=== PATIENT | male | born 1995 | race Caucasian/White ===

== ENCOUNTER 2020-10-14 10:06 | Emergency (ER) | payer OTHER ==
[~2020-10-14] VITALS: Ht 190.5 cm; Wt 74.8 kg
--- NOTE | 2020-10-14 10:17 | NUR ---
CARLOS WELCH [phone] MOM
--- NOTE | 2020-10-14 10:26 | NUR ---
BIBRA 102 FROM HOME C/O SI "TOOK 20 [place] PILLS". PT SLEEPY, EASILY AWAKEN BY VERBAL STIMULI. DENIES CP, SOB, N/V AT THIS TIME. PT SEEN & EVAL'D BY DR. ASENCIO. PT ON RESTRAINTS PER ERMD ORDER. PLACED ON MOLD DUMPER, SB. WILL CONT TO MONITOR.
[2020-10-14] MEDS ORDERED: LIDOCAINE HCL/MPF 1% 30 ML VIAL IJ ONE (10:27)
[2020-10-14] MEDS ORDERED: LIDOCAINE HCL/PF 1% 30 ML VIAL TP ONE (10:30)
[2020-10-14 10:32] LABS: BASOPHILS # (AUTO) 0.1 /CMM (0.0-0.2); BASOPHILS % (AUTO) 1.2 % (0.0-2.0); EOSINOPHILS % (AUTO) 3.6 % (0.0-6.0); HEMATOCRIT 49 % (39-51); HEMOGLOBIN 16.7 g/dL (13.5-17.5); LYMPHOCYTES # (AUTO) 1.5 /CMM (0.8-4.8); LYMPHOCYTES % (AUTO) 22.6 % (20.0-44.0); MEAN CORPUSCULAR HGB CONC 34 g/dl (31.0-36.0); MEAN CORPUSCULAR VOLUME 95 fL (80-96); MONOCYTES # (AUTO) 0.6 /CMM (0.1-1.30); MONOCYTES % (AUTO) 8.8 % (2.0-12.0); NEUTROPHILS # (AUTO) 4.2 /CMM (1.8-8.9); NEUTROPHILS % (AUTO) 63.8 % (43.0-81.0); PLATELET COUNT (AUTO) 276 /CMM (150-450); RED BLOOD CELL COUNT(AUTO) 5.22 MIL/uL (4.5-6.0); WHITE BLOOD COUNT (AUTO) 6.6 K/uL (4.3-11.0)
[2020-10-14 10:48] LABS: CALCIUM, SERUM 9.4 mg/dL (8.5-10.1); CARBON DIOXIDE 29 mmol/L (21-32); CHLORIDE 103 mmol/L (98-107); GLUCOSE 81 mg/dL (74-106); POTASSIUM 4.3 mmol/L (3.5-5.1); SODIUM SERUM 141 mmol/L (136-145); UREA NITROGEN, BLOOD 16 mg/dL (7-18)
[2020-10-14 10:52] LABS: ACETAMINOPHEN < 0 ug/ml (10-30); ALANINE AMINOTRANSFERASE 46 U/L (12-78); ALBUMIN 4.2 g/dL (3.4-5.0); ALCOHOL, BLOOD < 3 mg/dL (0-0); ALKALINE PHOSPHATASE 50 U/L (46-116); ASPARTATE AMINOTRANSFERASE 27 U/L (15-37); BILIRUBIN,DIRECT 0.3 mg/dL (0.0-0.2); TOTAL PROTEIN, SERUM 7.5 g/dL (6.4-8.2)
--- NOTE | 2020-10-14 12:23 | NUR ---
DR. ASENCIO AT FOR LAC REPAIR
--- NOTE | 2020-10-14 12:26 | NUR ---
[facility] [phone]
--- NOTE | 2020-10-14 13:00 | NUR ---
Patient is resting comfortably in bed with eyes closed. Easily aroused. VSS
--- NOTE | 2020-10-14 15:00 | NUR ---
[facility]ISON CONTR[facility] CONTINUE TO OBSERVATION UNTIL PT IS BACK FROM NORMAL AAO.
--- NOTE | 2020-10-14 15:05 | NUR ---
PT AAOX4, VSS. RR EVEN & UNLABORED. DENIES CP, SOB, DIZZINESS, N/V, ABD PAIN AT THIS TIME. SITTER AT BS & WILL CONT TO MONITOR.
[2020-10-14 16:16] LABS: BILIRUBIN,URINE Negative (NEGATIVE); COLOR,URINE YELLOW (YELLOW); LEUKOCYTE ESTERASE ,URINE Negative (NEGATIVE); NITRITE, URINE Negative (NEGATIVE); PROTEIN,URINE Negative (NEGATIVE); UGLUCOSE Negative (NEGATIVE); UROBILINOGEN,URINE 0.2 EU/dL (0.2)
[2020-10-14 16:28] LABS: BACTERIA,URINE Few /HPF (None Seen); RBC,URINE 0-2 /HPF (0-2); SQUAMOUS EPITHELIAL CELL,UR Few /HPF (None Seen); WBC,URINE 0-2 /HPF (0-3)
--- NOTE | 2020-10-14 16:40 | NUR ---
YUNG RN AT BEDSIDE FOR PSYCH EVAL.
--- NOTE | 2020-10-14 16:46 | NUR ---
LAB CALLED PT COVID NEGATIVE (-)
--- NOTE | 2020-10-14 18:43 | NUR ---
[facility] CALLED BACK. NO AVAILABLE BED AT THIS TIME.
--- NOTE | 2020-10-14 23:45 | NUR ---
CALL FROM POISON CONTROL, STATED TO DO AN EKG AND IF THE QRS IS 100 OR GREATER CALL THEM BACK OR IF [facility] HAS NOT IMPROVED
--- NOTE | 2020-10-15 02:13 | NUR ---
RESTRAINTS TAKEN OFF, PT RESTING COMFORTABLY.
--- NOTE | 2020-10-15 05:42 | NUR ---
PT RESTING COMFORTABLY. VSS.
--- NOTE | 2020-10-15 07:24 | NUR ---
CALLED [facility] [phone] ABDIRASHID GOT COVID RESULT WAITING FOR AVAILABLE BEDS
--- NOTE | 2020-10-15 07:37 | NUR ---
received a call from Marii from [facility] and will review patient records for admission.
--- NOTE | 2020-10-15 07:50 | NUR ---
call from Marii, waiting on discharge to get a male bed
--- NOTE | 2020-10-15 08:43 | NUR ---
Patient Tranfers to outside Facility Physician:Dr. Bates Location:[facility] room 403-A number for report [phone]
--- NOTE | 2020-10-15 09:01 | NUR ---
[facility] CALLED ETA 1100
--- NOTE | 2020-10-15 09:14 | NUR ---
PT RESTING IN BED. AAOX3 VERBALLY RESPONSIVE AND COOPERATIVE TO STAFF. SITTER AT BEDSIDE. WILL CONTINUE TO MONITOR.
--- NOTE | 2020-10-15 09:50 | NUR ---
Report given to Lewis BHAKTA for emily
[2020-10-15 11:35] VITALS: BP 118/71
--- NOTE | 2020-10-15 11:36 | NUR ---
patient picked up by private ambulance in no distress, going to [facility].
== END 2020-10-15 11:35 ==
LOC: ER 10:08
DX: T42.4X2A Poisoning by benzodiazepines, intentional self-harm, initial encounter (principal); R47.81 Slurred speech; Y92.89 Other specified places as the place of occurrence of the external cause; S00.81XA Abrasion of other part of head, initial encounter; S01.81XA Laceration without foreign body of other part of head, initial encounter; W18.30XA Fall on same level, unspecified, initial encounter; Z91.5 Personal history of self-harm; F31.9 Bipolar disorder, unspecified; J45.909 Unspecified asthma, uncomplicated; R94.31 Abnormal electrocardiogram [ECG] [EKG]; Z20.822 Contact with and (suspected) exposure to COVID-19
CPT/HCPCS: 12011; 36415; 70450; 80048; 80076; 80299; 80307; 80320; 81001; 85025; 87426; 93005; 99285; A6403; C9803; J3490; G0480